=== PATIENT | male | born 1960 | race Two or more races ===

== ENCOUNTER 2018-06-12 03:44 | Emergency (ER) | payer OTHER ==
[~2018-06-12] VITALS: Ht 180.3 cm; Wt 113.4 kg
[~2018-06-12 03:44] MED LIST: ASA81 MG; COZAAR100 MG; METFORMIN HCL500 MG; NEURAXON500 MG; TENORMIN50 MG
[2018-06-12] MEDS ORDERED: AMOX1TAB5 PO (10:14)
[2018-06-12] MEDS ORDERED: MECLIZINE HCL25 M1 PO (10:14)
== END 2018-06-12 10:33 | disposition home or self-care (01) ==
LOC: ER 03:44
DX: R42 Dizziness and giddiness (principal)

== ENCOUNTER 2018-12-29 07:57 | Outpatient (CLI) | payer OTHER ==
[~2018-12-29 07:57] MED LIST changes: +AMOX1TAB5 PO; +MECLIZINE HCL25 M1 PO
== END 2018-12-29 09:17 | disposition home or self-care (01) ==
LOC: NUCLEAR 07:57
DX: R07.89 Other chest pain (principal); I20.9 Angina pectoris, unspecified
CPT/HCPCS: 78452; 93017; A9500

== ENCOUNTER 2019-04-05 21:28 | Emergency (ER) | payer OTHER ==
[~2019-04-05] VITALS: Ht 180.3 cm; Wt 115.2 kg
[2019-04-05] MEDS ORDERED: PEPCID40 MG (21:39)
[2019-04-05] MEDS ORDERED: PLAVIX75 MG (21:39)
== END 2019-04-06 00:27 | disposition home or self-care (01) ==
LOC: ER 21:28
DX: I16.0 Hypertensive urgency (principal); I10 Essential (primary) hypertension

== ENCOUNTER 2019-12-24 04:26 | Emergency (ER) | payer OTHER ==
[~2019-12-24] VITALS: Ht 180.3 cm; Wt 115.7 kg
[~2019-12-24 04:26] MED LIST changes: +PEPCID40 MG; +PLAVIX75 MG
[2019-12-24] MEDS ORDERED: CARDURA8 MG (04:52)
== END 2019-12-24 13:01 | disposition home or self-care (01) ==
LOC: ER 04:26 → CPU-OBS 04:33 → ER 13:01
DX: R07.89 Other chest pain (principal)
CPT/HCPCS: G0378; G0379; 93005

== ENCOUNTER 2020-03-07 11:42 | Emergency (ER) | payer OTHER ==
[~2020-03-07] VITALS: Ht 180.3 cm; Wt 115.7 kg
[~2020-03-07 11:42] MED LIST changes: +CARDURA8 MG
[2020-03-07] MEDS ORDERED: GLUCOTROL XL5 MG PO (12:04)
[2020-03-07] MEDS ORDERED: FORTAMET1000 MG PO (12:04)
== END 2020-03-07 21:35 | disposition home or self-care (01) ==
LOC: ER 11:42 → CPU-OBS 11:43 → ER 11:43
DX: R07.89 Other chest pain (principal); R00.2 Palpitations; I10 Essential (primary) hypertension
CPT/HCPCS: G0378; G0379; 93005

== ENCOUNTER 2020-10-06 09:02 | Outpatient (CLI) | payer OTHER ==
[~2020-10-06 09:02] MED LIST changes: +FORTAMET1000 MG PO; +GLUCOTROL XL5 MG PO
== END 2020-10-06 09:09 | disposition home or self-care (01) ==
LOC: NUCLEAR 09:02
PROVIDERS: ATTEND Internal Medicine Cardiovascular Disease
DX: I73.9 Peripheral vascular disease, unspecified (principal)

== ENCOUNTER 2021-01-08 21:30 | Emergency (ER) | payer OTHER ==
[~2021-01-08] VITALS: Ht 180.3 cm; Wt 113.4 kg
[2021-01-08] MEDS ORDERED: CARDURA1 MG PO (21:43)
[2021-01-08] MEDS ORDERED: [UNRECOGNIZED DRUG - OTHER] PO (21:44)
[2021-01-08] MEDS ORDERED: ALLEGRA ALLERG180 MG PO (23:06)
== END 2021-01-08 23:44 | disposition home or self-care (01) ==
LOC: ER 21:30
DX: L29.8 Other pruritus (principal)

== ENCOUNTER 2022-08-27 09:08 | Inpatient (IN) | payer OTHER ==
[~2022-08-27] VITALS: Ht 180.3 cm; Wt 117.0 kg
[~2022-08-27 09:08] MED LIST changes: +ALLEGRA ALLERG180 MG PO; +CARDURA1 MG PO; +[UNRECOGNIZED DRUG - OTHER] PO
[2022-08-27] MEDS ORDERED: ZETIA10 MG PO (09:51)
[2022-08-27] MEDS ORDERED: ALTACE10 MG PO (09:52)
[2022-08-27] MEDS ORDERED: GLIPIZIDE XL10 MG PO (09:52)
[2022-08-29] MEDS ORDERED: HYDRALAZINE HCL10 MG PO (13:14)
[2022-08-29] MEDS ORDERED: CARDURA XL4 MG PO (13:14)
[2022-08-29] MEDS ORDERED: TOPROL XL50 M1 PO (13:14)
[2022-08-29] MEDS ORDERED: ST. JOSEPH ASPI81 M2 PO (13:14)
[2022-08-29] MEDS ORDERED: ALTACE10 MG PO (13:14)
[2022-08-29] MEDS ORDERED: HYDRODIURIL12.5 MG PO (13:14)
== END 2022-08-29 13:37 | disposition home or self-care (01) | DRG 305 ==
LOC: ER 09:08 → SEC-K 19:55 → SURH 08-28 14:16 → SEC-K 08-28 17:27
PROVIDERS: ADMIT Specialist; ATTEND Specialist
PROC: B24BZZZ Ultrasonography of Heart with Aorta (ICD-10-PCS; principal; 2022-08-27)
DX: I16.0 Hypertensive urgency (principal); G47.33 Obstructive sleep apnea (adult) (pediatric); E11.9 Type 2 diabetes mellitus without complications; I25.10 Atherosclerotic heart disease of native coronary artery without angina pectoris; I10 Essential (primary) hypertension

== ENCOUNTER 2023-04-27 07:24 | Outpatient (CLI) | payer OTHER ==
[~2023-04-27 07:24] MED LIST changes: +ALTACE10 MG PO; +CARDURA XL4 MG PO; +GLIPIZIDE XL10 MG PO; +HYDRALAZINE HCL10 MG PO; +HYDRODIURIL12.5 MG PO; +ST. JOSEPH ASPI81 M2 PO; +TOPROL XL50 M1 PO; +ZETIA10 MG PO
== END 2023-04-27 07:25 | disposition home or self-care (01) ==
LOC: NUCLEAR 07:24
PROVIDERS: ATTEND Specialist
DX: D35.1 Benign neoplasm of parathyroid gland (principal)

== ENCOUNTER 2023-10-07 11:06 | Outpatient (CLI) | payer OTHER | END 2023-10-07 11:21 | disposition home or self-care (01) | LOC: SONOGRAMA 11:06 | PROVIDERS: ATTEND Specialist | DX: E11.21 Type 2 diabetes mellitus with diabetic nephropathy (principal) ==

== ENCOUNTER 2023-12-23 07:13 | Outpatient (CLI) | payer OTHER | END 2023-12-23 07:15 | disposition home or self-care (01) | LOC: NUCLEAR 07:13 | PROVIDERS: ATTEND Internal Medicine Cardiovascular Disease | DX: I20.9 Angina pectoris, unspecified (principal) ==

== ENCOUNTER 2023-12-31 06:15 | Emergency (ER) | payer OTHER ==
[~2023-12-31] VITALS: Ht 180.3 cm; Wt 108.9 kg
[2023-12-31] MEDS ORDERED: NORVASC5 MG PO (06:24)
== END 2023-12-31 09:24 | disposition home or self-care (01) ==
LOC: ER 06:15
DX: I10 Essential (primary) hypertension (principal); Z88.2 Allergy status to sulfonamides; E11.9 Type 2 diabetes mellitus without complications; Z79.84 Long term (current) use of oral hypoglycemic drugs